=== PATIENT | female | born 1985 | race Caucasian/White ===

== ENCOUNTER 2021-07-26 15:22 | Emergency (ER) | payer MEDICAID ==
[~2021-07-26] VITALS: Ht 157.5 cm; Wt 67.6 kg
[2021-07-26 15:25] VITALS: BP 155/96
--- NOTE | 2021-07-26 15:30 | NUR ---
PT AMBULATED WITH EVEN AND STEADY GAIT TO BED 2
--- NOTE | 2021-07-26 15:35 | NUR ---
ALICE Patterson is evaluating patient at bedside
--- NOTE | 2021-07-26 15:35 | NUR ---
35 y/o BIB self from home c/o bilateral feet pain x 3 weeks. Patient reports lateral plantar pain +inflammation +bruising in area. Patient denies injury, fall, trauma, loss of sensation. Patient states 7/10, burning/constant, radiating up her left leg to her low back. Patient denies nay medications prior to arrival. Bed locked in lowest position, side rails x 1. PMH: DENIES MED: DENIES NKA
[2021-07-26] MEDS ORDERED: IBUPROFEN 600 MG TAB PO ONE (15:45)
[2021-07-26] MEDS ORDERED: IBUP-2213 PO (15:49)
== END 2021-07-26 16:03 | disposition home or self-care (01) ==
LOC: MED 15:22
DX: M72.2 Plantar fascial fibromatosis (principal); R03.0 Elevated blood-pressure reading, without diagnosis of hypertension; Z79.899 Other long term (current) drug therapy
CPT/HCPCS: 99282